=== PATIENT | male | born 1945 | race Caucasian/White ===

== ENCOUNTER 2016-11-17 08:54 | Outpatient (CLI) | payer MEDICARE ==
[~2016-11-17] VITALS: Ht 162.6 cm; Wt 68.0 kg
[~2016-11-17 08:54] MED LIST: ASP81TEC PO; ATOR40TA70 PO; CEFU500T5 PO; CETI10TA17 PO; COLC0.6T53 PO; DICL50TA6 PO; ENAL2.5T PO; ENAL5TAB PO; ENLP5T; ENLP5T GT; FLUT16SP22 NS; FURO20TA4; FURO40TA4; FURO40TA4 PO; FURO80TA3 PO; GLYB2.5T2 PO; GLYB2.5T4 PO; GLYB5TAB6 PO; HYDR-34 PO; HYDR-3720 PO; INSASP10V SC; INSASP10V SQ; INSU100C4 SQ; INSU100I10 SQ; INSU100V5 SQ; KCL20TCR; KCL20TCR PO; LEVO750T9 PO; METF1000 PO; METO-272 PO; METO25TA2; METO5TAB75 PO; MTF500T PO; NAPR375T3 PO; OMEP20CA12 PO; OMEP20CA6 PO; PANT40TA2 PO; PANT40TA3 PO; POTA-51 PO; POTA10CA43 PO; PRD10T PO; PROP1TAB77 PO; RT-ALBUINH IH; SIMV40TA4 PO; SMV20T PO; TAMS0.4C2 PO; TRAM50TA2 PO
--- OUTSIDE RECORDS SUMMARY | 2016-11-17 08:58 | XMS REPORT | Continuity of Care Document ---
Author Author [facility] Organization [facility] Address Unknown Phone Unavailable Care Team Providers Care Neon Sign Maker Name Role Phone PCP Unavailable Source Comments Some departments are not documenting in the electronic medical record. If you do not see the information that you expected, contact Release of Information in the Health Information Management department at [phone] for further assistance in locating additional records.[facility] Active Allergies and Adverse Reactions Not on File Current Medications Not on file Active Problems Not on file Social History Tobacco Use Types Packs/Day Years Used Date Never Assessed Plan of Care Health Maintenance Due Date Last Done Comments Physical (Comprehensive) 1952 Exam Pertussis Vaccine 1958 Tetanus Vaccine 1964 Colorectal Cancer 1997 Screening Shingles Vaccine 2007 Prevnar/Pneumovax (#1) 2012 Influenza Vaccine 06/05/2016 Results from Last 3 Months Not on file
[2016-11-17 09:02] VITALS: BP 127/70
[2016-11-17 10:11] LABS: CALCIUM 9.1 MG/DL (8.5-10.1); CREATININE SERUM 1.29 MG/DL (0.60-1.30); POTASSIUM 4.6 MMOL/L (3.6-5.0)
== END 2016-11-17 09:30 | disposition home or self-care (01) ==
LOC: PREOP 08:54
PROVIDERS: ATTEND Podiatrist Foot Surgery
DX: Z01.812 Encounter for preprocedural laboratory examination (principal); Z11.2 Encounter for screening for other bacterial diseases; M20.12 Hallux valgus (acquired), left foot; M20.42 Other hammer toe(s) (acquired), left foot
CPT/HCPCS: 36415; 80048; 87081

== ENCOUNTER 2016-11-21 06:05 | Day surgery (SDC) | payer MEDICARE ==
--- NOTE | 2016-11-17 13:06 | HISTORY AND PHYSICAL ---
CHIEF COMPLAINT: To have left foot surgery, han, this Thursday by Dr. Tenorio. ALLERGIC TO MEDICATIONS: INDOCIN MEDICATIONS NOW ON: 1. Lantus 14 units b.i.d. 2. NovoLog 7 units 3. aspirin 81 4. KCL 20 mEq one every other day 5. Flomax 0.4 6. Metformin 7. Zyrtec 8. furosemide 9. enalapril 10. 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 3. Pacemaker. 4. Tonsils. FAMILY HISTORY: Diabetic grandparents. Denies asthma, TB, heart disease, lung disease, cancer. REVIEW OF SYSTEMS: HEAD: Denies headache, dizziness, fainting. EYES, EARS, NOSE, THROAT: Wears glasses. Denies diplopia, tinnitus, sore throat. HEART: Had mitral valve repair. Denies chest pain or shortness of breath. LUNGS: Denies asthma, TB, coughing, congestion. GASTROINTESTINAL: Appetite good. Denies blood in stools, diarrhea, constipation, ulcer, vomiting. GENITOURINARY: Denies blood, pain, frequency. PHYSICAL EXAMINATION: The patient is a white male, well-nourished, well-developed, in no acute respiratory distress at rest. EARS: Not inflamed. EYES: No conjunctivitis or icterus. THROAT: Not inflamed. NECK: Thyroid not enlarged. No abnormal cervical lymphadenopathy noted. HEART: Regular rate and rhythm. LUNGS: Clear to auscultation. ABDOMEN: Soft. Liver and spleen nonpalpable. EXTREMITIES: No pretibial edema. Feet warm. The patient is okay for surgery. We will be on standby if has any problems. Job ID: [id number] Dictated Date: 11/17/2016 11:15:27 Commercial Airline Pilot Date: 11/17/2016 13:02:28/azael
[~2016-11-21] VITALS: Ht 162.6 cm; Wt 68.0 kg
--- OUTSIDE RECORDS SUMMARY | 2016-11-21 06:09 | XMS REPORT | Continuity of Care Document ---
Author Author [facility] Organization [facility] Address Unknown Phone Unavailable Care Team Providers Care Cane Piler Name Role Phone PCP Unavailable Source Comments Some departments are not documenting in the electronic medical record. If you do not see the information that you expected, contact Release of Information in the Health Information Management department at [phone] for further assistance in locating additional records.[facility] Active Allergies and Adverse Reactions Not [...]
--- OUTSIDE RECORDS SUMMARY | 2016-11-21 06:09 | XMS REPORT | Continuity of Care Document ---
Author Author [facility] Organization [facility] Address Unknown Phone Unavailable Care Team Providers Care Assembler Rubber Footwear Name Role Phone PCP Unavailable Source Comments Some departments are not documenting in the electronic medical record. If you do not see the information that you expected, contact Release of Information in the Health Information Management department at [phone] for further assistance in locating additional records.[facility] Active Allergies and Adverse Reactions Not [...]
[2016-11-21 06:40] VITALS: BP 121/68
[2016-11-21] MEDS ORDERED: NS (IVPB) 50 ML ONE (06:44)
[2016-11-21] MEDS ORDERED: ceFAZolin 1,000 MG (ANCEF) VIAL ONE (06:44)
[2016-11-21] MEDS ORDERED: FAMOTIDINE 20MG/2ML IV (PEPCID) ONE (06:48)
[2016-11-21] MEDS ORDERED: LACTATED RINGERS 1,000 ML IV PRN (06:51)
[2016-11-21] MEDS ORDERED: PROPOFOL INJECTION 50 ML IV ONE ×2 (06:55→08:39)
[2016-11-21] MEDS ORDERED: ONDANSETRON 4 MG/2 ML (SDV) Z0FRAN ONE (06:55)
[2016-11-21] MEDS ORDERED: MIDAZOLAM 2 MG/2 ML (VERSED) VIAL ONE (06:56)
[2016-11-21] MEDS ORDERED: FAMOTIDINE 20MG/2ML IV (PEPCID) IV ONE (07:00)
[2016-11-21] MEDS ORDERED: MEPIVACAINE (CARBOCAINE) 2% 50 ML VIAL ONE (07:08)
[2016-11-21] MEDS ORDERED: DEXAMETHASONE PF 10 MG/ML (DECADRON) VIAL ONE (07:09)
[2016-11-21] MEDS ORDERED: BUPIVACAINE 0.5% 30 ML (SENSORCAINE) VIAL ONE (07:09)
[2016-11-21] MEDS ORDERED: ceFAZolin 1 GM/NS 50 ML IVPB IV ONE ×2 (07:15)
[2016-11-21] MEDS ORDERED: LACTATED RINGERS 1,000 ML IV SCH (07:29)
--- NOTE | 2016-11-21 07:29 | Progress Note-Pre Operative ---
Pre-Operative Progress Note H&P Reviewed The H&P was reviewed, patient examined and no changes noted. Date H&P Reviewed: Nov 21, 2016 Time H&P Reviewed: 07:30 Pre-Operative Diagnosis: hallux valgus left foot hammer toe second left foot ELVA CONNOR DPM Nov 21, 2016 7:29 am
[2016-11-21] MEDS ORDERED: HYDROcodone/APAP 5 MG/325 MG (LORTAB) TAB PO PRN (07:30)
[2016-11-21] MEDS ORDERED: MEPERIDINE (DEMEROL) INJ 50 MG/ML IVP PRN (09:30)
[2016-11-21] MEDS ORDERED: morphine INJ 10 MG/ML 1ML (SYR OR VIAL) IVP PRN (09:30)
[2016-11-21] MEDS ORDERED: ONDANSETRON 4 MG/2 ML (SDV) Z0FRAN IVP PRN (09:30)
--- NOTE | 2016-11-21 09:30 | Progress Note-Post Operative ---
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 Post-Op Procedure Note Date of Procedure: Nov 21, 2016 Name of Procedure: IKELLER BUNOIONECTOMY LEFT FOOT CORRECTION OF HAMMERED SECOND DIGIT LEFT FOOT WITH INTERNAL FIXATION;. Procedure Note/Findings TOPHACEOUS DEPOSITS OF FIRST MPJ Anesthesia Type REGIONAL WITH ASSIST Specimen(s) collected BONE AND GOUTY DEPOSIT FROM [facility] MPJ LEFT FOOT ELVA CONNOR DPM Nov 21, 2016 9:29 am
--- NOTE | 2016-11-21 09:32 | Discharge Instructions ---
Discharge Instructions Discharge Medications New, Converted or Re-Newed RX: RX Given to Pt/Family Patient Instructions Patient Instructions 1. Follow up in office in 2 weeks. 2. Diet as tolerated. 3. Activity as tolerated. Activity & Diet Activity as Tolerated: Yes ELVA CONNOR DPM Nov 21, 2016 9:32 am
[2016-11-21] MEDS ORDERED: HYDR-3730 PO (09:37)
[2016-11-21 09:50] VITALS: BP 107/61
[2016-11-21 10:20] VITALS: BP 107/65
[2016-11-21 10:50] VITALS: BP 111/64
--- NOTE | 2016-11-21 10:53 | Diagnostic Imaging Report ---
INDICATION: Followup left foot pain. DISCUSSION: Two views left foot were obtained, comparison 12/04/2015. Interval postsurgical changes of left bunionectomy and percutaneous fixation of the left second toe. No hardware complications identified. No unexpected radiopaque foreign body. Overlying bandage is present. Posttraumatic deformity of the medial malleolus appears stable and is incompletely viewed, chronic. IMPRESSION: 1. Postoperative changes of the left foot as described. Dictated by: Dictated on workstation # [id number]
[2016-11-21 11:28] VITALS: BP 111/64
--- NOTE | 2016-11-22 11:57 | OPERATIVE REPORT ---
PROCEDURE PHYSICIAN: ELVA CONNOR DATE OF PROCEDURE: 11/21/2016 PREOPERATIVE DIAGNOSES: 1. Hallux valgus, left foot. 2. Contracted second digit, left foot. POSTOPERATIVE DIAGNOSES: 1. Hallux valgus, left foot. 2. Contracted second digit, left foot. NAME OF OPERATION: 1. Larry bunionectomy, left foot. 2. Capsulotomy, arthroplasty and tenotomy second digit left with K wire fixation. DESCRIPTION OF OPERATION: With the patient in the supine position, having been effected by regional anesthetic, utilizing 9 mL of 50:50 mixture of 0.5% Marcaine plain and 1% Carbocaine plain. With anesthesia assist, sterile prep and drape were performed and a August bandage was applied above the level of the left ankle. A 7 cm curvilinear incision was made over the dorsal aspect of the first metatarsal medial to the HL tendon and extended onto the first digit. This incision was deepened with sharp and blunt dissection. Vital structures identified and retracted. First MPJ was incised in a linear fashion. The capsule and periosteum were freed from the dorsal medial and lateral aspect of the proximal phalangeal base, first metatarsal head. Medial exostosis of the first metatarsal head was resected in toto. There was considerable tophaceous deposits noted within the joint due to gout and significant erosion of the articular surfaces. The base of the proximal phalanx was resected 1 cm distal to the articular surface. The area was flushed with copious amounts of saline. Extraneous tophaceous deposits were removed. Capsule was closed with continuous lock suture of 3-0 Vicryl. Superficial fascia closed with continuous suture of 4-0 Vicryl and the skin was closed with continuous lock suture of 4-0 Prolene. A 3 cm curvilinear incision was made over the dorsal aspect of the second digit, deepened with sharp and blunt dissection. The PIPJ was incised in a linear fashion medial to the extensor longus tendon. The joint was incised and the medial and lateral collateral ligaments were severed. The head of the proximal phalanx and the base of the distal phalanx were noted to be completely involved with tophaceous gouty deposits and significantly enlarged. These were remodeled to normal bony contour and what was left of the articular surface was resected from the phalangeal head and middle phalangeal base. A smooth 0.045 K wire was introduced through the end of the digit and retrograded into the proximal phalanx to afford adequate fixation and reapproximate the digit. The area was flushed with copious amounts of saline. Capsule was closed with continuous suture of 4-0 Vicryl. Superficial fascia and skin were closed with continuous suture of 4-0 Prolene. Decadron was introduced into the operative site to control postoperative pain and swelling and to help minimize any gouty attack. Adaptic and sterile corrective compressive wet-to-dry Betadine dressing were applied and carried above the level of the left ankle and covered with circular Coban. The patient tolerated the procedure well with minimal blood loss. Blood flow returned digits was within normal limits. The patient was given an Rx for Lortab 7.5 number 28, 1 q.4-6 hours p.r.n. foot pain. He is to be seen in the office in 2 weeks for appropriate follow-up care. Job ID: [id number] Dictated Date: 11/21/2016 09:38:18 Computer Bookkeeper Date: 11/22/2016 11:47:24 / [email or web address]
== END 2016-11-21 11:28 | disposition home or self-care (01) ==
LOC: SDC 06:05
PROVIDERS: ATTEND Podiatrist Foot Surgery
DX: M20.12 Hallux valgus (acquired), left foot (principal); M20.42 Other hammer toe(s) (acquired), left foot; E11.9 Type 2 diabetes mellitus without complications; Z79.4 Long term (current) use of insulin; Z79.84 Long term (current) use of oral hypoglycemic drugs
CPT/HCPCS: 73620; 82962; 88305; 88311

== ENCOUNTER → 2017-07-07 | Outpatient (CLI) | payer MEDICARE ==
[~2017-07-07] MED LIST changes: +HYDR-3730 PO
== END ==
LOC: RAD 12:36
PROVIDERS: ATTEND Internal Medicine Cardiovascular Disease
DX: I73.9 Peripheral vascular disease, unspecified (principal); I25.5 Ischemic cardiomyopathy; I25.10 Atherosclerotic heart disease of native coronary artery without angina pectoris; I42.0 Dilated cardiomyopathy; E11.40 Type 2 diabetes mellitus with diabetic neuropathy, unspecified
CPT/HCPCS: 93923

== ENCOUNTER → 2018-07-07 | Outpatient (CLI) | payer MEDICARE ==
[~2018-07-07] MED LIST changes: +METF-399 PO; -METF1000 PO; +NAPR-1084 PO; -NAPR375T3 PO
== END ==
LOC: CARD 12:28
PROVIDERS: ATTEND Nurse Practitioner Family
DX: I34.8 Other nonrheumatic mitral valve disorders (principal)
CPT/HCPCS: 93306

== ENCOUNTER 2020-07-30 05:37 | Outpatient (RCR) | payer MEDICARE ==
[~2020-07-30] VITALS: Ht 162.6 cm; Wt 62.8 kg
[~2020-07-30 05:37] MED LIST changes: +ASPI-1238 PO; +EMPA25TA PO; +ENLP2.5T PO; +ENLP5T PO; +OMEP40CA27 PO; -PANT40TA3 PO; +PANT40TA52 PO; +PROB500T8 PO; +ROSU5TAB13 PO; +SEMA0.25 SQ; +TMSL.4C PO; -TRAM50TA2 PO; +TRM50T PO
== END 2020-07-30 09:55 | disposition home or self-care (01) ==
LOC: PREOP 05:37
PROVIDERS: ATTEND Surgery
DX: Z01.812 Encounter for preprocedural laboratory examination (principal); Z20.828 Contact with and (suspected) exposure to other viral communicable diseases
CPT/HCPCS: 87635

== ENCOUNTER 2020-08-02 10:39 | Day surgery (SDC) | payer MEDICARE ==
[2020-08-02] VITALS (11 sets, daily range): BP systolic 106–127; BP diastolic 40–78
[~2020-08-02] VITALS: Ht 162 cm; Wt 138.0 kg
[2020-08-02] MEDS ORDERED: ONDANSETRON 4 MG/2 ML (SDV) Z0FRAN IVP PRN ×2 (11:15→15:30)
[2020-08-02] MEDS ORDERED: ACETAMINOPHEN 325 MG TABLET PO PRN (11:15)
[2020-08-02] MEDS ORDERED: CATHETER FLUSH 10 ML SYR IV PRN (11:15)
[2020-08-02] MEDS ORDERED: HYDROcodone/APAP 5 MG/325 MG (LORTAB) TAB PO ONE (11:15)
[2020-08-02] MEDS ORDERED: morphine INJ 10 MG/ML 1ML (SYR OR VIAL) IVP PRN (11:15)
[2020-08-02] MEDS ORDERED: ceFAZolin INJECTION 1,000 MG in WATER (STERILE) FOR INJECTION 10 ML IV ONE (11:15)
--- NOTE | 2020-08-02 11:15 | Progress Note-Pre Operative ---
Pre-Operative Progress Note H&P Reviewed The H&P was reviewed, patient examined and no changes noted. Date Seen by Provider: Aug 02, 2020 Time Seen by Provider: 11:10 Date H&P Reviewed: Aug 02, 2020 Time H&P Reviewed: 11:05 Pre-Operative Diagnosis: Symptomatic right inguinal hernia CHAITANYA YUN APRN Aug 02, 2020 11:15
[2020-08-02] MEDS ORDERED: HYDR-4227 PO (11:18)
--- NOTE | 2020-08-02 11:18 | Discharge Inst-Surgical ---
D/C Lap Instructions-KIDO Reconcile Patient Problems Problems Reviewed?: Yes New, Converted, or Re-Newed RX: RX on Chart Follow Up Appt in 2 weeks Activity as tolerated No driving for 24 hours No driving while on pain medications Incentive Spirometry use every 2 hours while awake Regular Diet Symptoms to Report: Fever over 101 degree F, Nausea/Vomiting Infection Signs and Symptoms to report: Increased redness, Foul odor of wound, Increased drainage Bathing instructions: May shower Operative Area Clean/Dry; Keep incision clean/dry If any problems/questions: Contact your physician or go to Emergency Room CHAITANYA YUN APRN Aug 02, 2020 11:18
[2020-08-02] MEDS: LACTATED RINGERS 1,000 ML IV PRN ×2 (11:25→14:52)
[2020-08-02 11:34] LABS: BASOPHILS # (AUTO) 0.1 10^3/uL (0.0-0.1); BASOPHILS % (AUTO) 1 % (0-10); EOSINOPHILS # (AUTO) 0.5 10^3/uL (0.0-0.3); EOSINOPHILS % (AUTO) 7 % (0-10); HEMATOCRIT 49 % (40-54); HEMOGLOBIN 16.2 g/dL (13.3-17.7); LYMPHOCYTES # (AUTO) 2.1 10^3/uL (1.0-4.0); LYMPHOCYTES % (AUTO) 28 % (12-44); MEAN CORPUSCULAR HEMOGLOBIN 29 pg (25-34); MEAN CORPUSCULAR HGB CONC 33 g/dL (32-36); MEAN CORPUSCULAR VOLUME 87 fL (80-99); MEAN PLATELET VOLUME 10.4 fL (9.0-12.2); MONOCYTES # (AUTO) 0.6 10^3/uL (0.0-1.0); MONOCYTES % (AUTO) 8 % (0-12); NEUTROPHILS # (AUTO) 4.2 10^3/uL (1.8-7.8); NEUTROPHILS % (AUTO) 56 % (42-75); PLATELET COUNT 212 10^3/uL (130-400); WHITE BLOOD COUNT 7.4 10^3/uL (4.3-11.0)
[2020-08-02 11:53] LABS: CALCIUM 8.9 MG/DL (8.5-10.1); CREATININE SERUM 1.41 MG/DL (0.60-1.30); POTASSIUM 4.6 MMOL/L (3.6-5.0)
[2020-08-02] MEDS ORDERED: LIDOCAINE/EPI 1%-1:200,000 (XYLOCAINE) 30 ML VIAL ONE (12:45)
[2020-08-02] MEDS ORDERED: proPOfol 200 MG/20 ML (DIPRIVAN) VIAL IV ONE (13:18)
[2020-08-02] MEDS ORDERED: LIDOCAINE PF 2% 5 ML (XYLOCAINE) VIAL ONE (13:18)
[2020-08-02] MEDS ORDERED: ONDANSETRON 4 MG/2 ML (SDV) Z0FRAN ONE (13:18)
[2020-08-02] MEDS ORDERED: MIDAZOLAM 2 MG/2 ML (VERSED) VIAL ONE (13:19)
[2020-08-02] MEDS ORDERED: fentaNYL INJECTION 100 MCG/2 ML AMP ONE (13:19)
[2020-08-02] MEDS ORDERED: PHENYLEPHRINE 100 MCG/ML 10 ML (ANESTHESIA) SYR ONE (14:38)
[2020-08-02] MEDS ORDERED: ROCURONIUM 10 MG/ML 5 ML SYRINGE IV ONE (14:38)
--- NOTE | 2020-08-02 14:42 | Progress Note-Post Operative ---
Post-Operative Progess Note Surgeon (s)/Natural Developer (s) Surgeon BEA MINAYA MD Natural Developer: zaki sheffield AUTOMOTIVE PROFESSIONAL Pre-Operative Diagnosis Symptomatic right inguinal hernia Post-Operative Diagnosis reducible right indirect inguinal hernia. uretheral stricture. Procedure & Operative Findings Date of Procedure 08/02/20 Procedure Performed/Findings laparoscopic right inguinal hernia repair with mesh. uretheral dilation with coudet cath placment. Anesthesia Type get Estimated Blood Loss Estimated blood loss (mL): minimal Specimens/Packing Specimens Removed none BEA MINAYA MD Aug 02, 2020 14:42
[2020-08-02] MEDS ORDERED: SEVOFLURANE (ULTANE) 15 ML INHAL SOLN ONE (15:06)
[2020-08-02] MEDS ORDERED: morphine INJ 10 MG/ML 1ML (SYR OR VIAL) ONE (15:26)
[2020-08-02] MEDS ORDERED: morphine INJ 10 MG/ML 1ML (SYR OR VIAL) IVP ONE (15:30)
[2020-08-02] MEDS ORDERED: HYDROcodone/APAP 5 MG/325 MG (LORTAB) TAB ONE (16:36)
--- NOTE | 2020-08-02 22:30 | OPERATIVE REPORT ---
DATE OF SERVICE: 08/02/2020 ATTENDING PRIMARY CARE PHYSICIAN: Jax Fox DO. PREOPERATIVE DIAGNOSIS: Symptomatic reducible right inguinal hernia. POSTOPERATIVE DIAGNOSIS: Symptomatic reducible right indirect inguinal hernia, prostatic urethral stricture. PROCEDURE: Laparoscopic right inguinal hernia repair with mesh, urethral dilatation and Coude catheter placement. SURGEON: Bea Muniz MD [place] [facility] CONSULTANT: Bulmaro Jara APRN. ANESTHESIA: General endotracheal. ESTIMATED BLOOD LOSS: Minimal. FINDINGS: Indirect right inguinal hernia with nothing within the hernia sac, prostatic urethral stricture dilated to 18-Botswanan. DISPOSITION: The patient tolerated the procedure well. INDICATIONS: The patient is a 75-year-old male, who has had a known history of a right inguinal hernia, which was initially asymptomatic. He states that he was hiking recently and developed a sharp pain and noticed the bulge had grew larger in size. Upon examination, he was found to have a reducible right inguinal hernia, which was tender to palpation. He is otherwise eating well, having normal bowel movements. Before the procedure, an attempt was made to place a Andino catheter; however, due to his history of benign prostatic hypertrophy and likely prostatic urethral stricture, the catheter would not go through. Attempts were made at a 16-Botswanan Coude catheter; however, unsuccessful. We then proceeded with prostatic urethral dilatation using sounds starting at 16 and increasing to 18-Botswanan in luminal diameter. An 18-Botswanan Coude catheter was then placed without any resistance withdrawing of urine. The catheter was then connected to gravity drainage bag. The abdomen was then prepped and draped in standard surgical fashion. A 0.5% Marcaine with epinephrine was then used to anesthetize overlying skin left upper abdominal quadrant. A transverse skin incision was then made using a 15 blade. An 0 silk suture was applied to the medial aspect and incision for retraction and Veress infraumbilical rim was anesthetized and a crescent shaped skin incision made using a 15 blade. A Veress needle inserted with a low opening pressure of 0 mmHg and the abdomen was then insufflated to 15 mmHg pressure. Veress needle removed and a 10 mm XL trocar placed followed by a 10 mm 45-degree angle laparoscope visualizing the peritoneal cavity. A 4-quadrant abdominal exploration was performed. A right indirect inguinal hernia was identified with nothing within the hernia sac. There was no left inguinal hernia component was inserted the omentum, small bowel appeared normal. Under direct visualization, bilateral 5 mm ports were placed after the skin and peritoneal lining were anesthetized using 0.5% Marcaine with epinephrine and a skin incision was made using a 15 blade. The patient was then placed in Trendelenburg position and the peritoneal lining was then opened using Sonicision starting laterally towards the conjoined tendon and inguinal ligament. We then proceeded medially towards the Conrad's ligament. We then proceeded with our inferior dissection encompassing the entire hernia sac using blunt dissection as well as the Sonicision. The cord and its surrounding contents identified and spared throughout the process. A medium size 3DMax polypropylene mesh was then placed into the defect and tacked to Conrad's ligament with an AbsorbaTack medially and conjoint tendon laterally with visualization of good hemostasis. The peritoneal lining was then placed over the mesh and few tacks placed to hold this in place with visualization of good hemostasis. The 10 mm port site fascia and peritoneum were then closed under direct visualization using a Fly-Ariana device and 0 Vicryl suture. The abdomen was desufflated and remaining ports removed. All skin incisions were closed using 4-0 Monocryl running subcuticular sutures. Wounds were then cleaned and covered with Dermabond. The abdomen was desufflated and remaining ports removed. All skin incisions were closed using 4-0 Monocryl running subcuticular sutures. Wounds were then cleaned and covered with Dermabond. The patient tolerated the procedure well. We will start IV normal pain medication as well as a clear liquid diet. Once he is tolerating clears, has good pain control with oral pain medications, ambulating well, we will discharge him home. We will also keep the catheter in for 24 hours and remove it in the office and instructed to continue with his prostatic hypertrophy medication at home. Job ID: [id number] DocumentID: [id number] Dictated Date: 08/02/2020 14:50:21 Certified Pest Control Technician Date: 08/02/2020 22:30:35 Dictated By: BEA MUNIZ MD
== END 2020-08-02 17:30 ==
LOC: SDC 10:39
PROVIDERS: ATTEND Surgery
DX: K40.90 Unilateral inguinal hernia, without obstruction or gangrene, not specified as recurrent (principal); N35.819 Other urethral stricture, male, unspecified site; N40.0 Benign prostatic hyperplasia without lower urinary tract symptoms; I10 Essential (primary) hypertension; I25.10 Atherosclerotic heart disease of native coronary artery without angina pectoris; E11.40 Type 2 diabetes mellitus with diabetic neuropathy, unspecified; K21.9 Gastro-esophageal reflux disease without esophagitis; M10.9 Gout, unspecified; E78.00 Pure hypercholesterolemia, unspecified; I25.2 Old myocardial infarction; Z79.82 Long term (current) use of aspirin; Z79.899 Other long term (current) drug therapy; Z88.8 Allergy status to other drugs, medicaments and biological substances; Z88.5 Allergy status to narcotic agent; Z95.1 Presence of aortocoronary bypass graft
CPT/HCPCS: 49650; 53605; 80048; 82962; 85025; 87081; C1781; 36415

== ENCOUNTER → 2020-09-04 | Outpatient (CLI) | payer MEDICARE ==
[~2020-09-04] MED LIST changes: +HYDR-4227 PO
--- NOTE | 2020-09-04 12:19 | Diagnostic Imaging Report ---
CLINICAL INDICATION: Patient with rib pain x1 week on the right lower side. No known injury. EXAM: Chest x-ray PA and lateral views. COMPARISONS: Chest x-ray dated 08/26/2016. FINDINGS: Lungs/pleura: There is interval development of minimal curvilinear opacities in the right costophrenic angle region which may represent atelectasis versus infiltrate. The remainder of the lungs are clear. There is no pneumothorax. There is no pleural effusion. Mediastinum: Unremarkable. Pulmonary vasculature: Unremarkable. Heart: Heart size is within normal limits. Cardiac pacemaker/ICD is again seen overlying left chest with single lead projecting over the heart. Stable postoperative changes consistent with CABG. Bones/extrathoracic soft tissue: There are small spurs involving the thoracic spine. There is no rib fracture seen or significant bony abnormality. IMPRESSION: There is interval minimal atelectasis versus infiltrate in the right costophrenic angle region. Otherwise, there is no radiographic evidence of acute cardiopulmonary process. Dictated by: Dictated on workstation # [id number]
== END ==
LOC: RAD 11:03
PROVIDERS: ATTEND Family Medicine
DX: R06.02 Shortness of breath (principal); R07.81 Pleurodynia
CPT/HCPCS: 71046

== ENCOUNTER → 2020-09-11 | Outpatient (CLI) | payer MEDICARE ==
--- NOTE | 2020-09-11 13:47 | Diagnostic Imaging Report ---
PROCEDURE: CT abdomen and pelvis without contrast. TECHNIQUE: Multiple contiguous axial images were obtained through the abdomen and pelvis without the use of intravenous contrast. Auto Exposure Controls were utilized during the CT exam to meet ALARA standards for radiation dose reduction. INDICATION: Weight loss. COMPARISON: No prior studies are available for comparison. FINDINGS: Imaging through the lung bases does show some infiltrate in bilateral lower lobes. No discrete liver mass is identified. The gallbladder is unremarkable. No biliary ductal dilatation is seen. The pancreas does contain punctate calcifications throughout the head, neck, body and tail. 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 Spleen is unremarkable. No adrenal mass is detected. The left kidney does contain a 19 mm cyst. Aorta is calcified but non-aneurysmal. The bowel loops are normal caliber. No obstruction is seen. There is no free fluid or fluid collection. Bladder is unremarkable. The prostate is markedly enlarged measuring 5.7 x 7.1 cm. No definite abdominal or pelvic lymphadenopathy is seen. The bony structures are not acute. IMPRESSION: 1. Bilateral lower lobe pulmonary infiltrates suggestive of pneumonia. 2. Marked prostatomegaly. 3. No acute features detected. Dictated by: Dictated on workstation # [id number]
== END ==
LOC: RAD 13:18
PROVIDERS: ATTEND Family Medicine
DX: N40.0 Benign prostatic hyperplasia without lower urinary tract symptoms (principal); R91.8 Other nonspecific abnormal finding of lung field; R63.4 Abnormal weight loss
CPT/HCPCS: 74176

== ENCOUNTER → 2020-09-13 | Outpatient (CLI) | payer MEDICARE ==
--- NOTE | 2020-09-13 11:11 | Diagnostic Imaging Report ---
EXAM: PA and lateral chest at 10:25 AM INDICATION: Shortness of breath The heart size is within normal limits and stable when compared to 09/04/2020. The previous study did show minimal atelectasis/infiltrate in the right costophrenic angle. The density in this area is slightly greater than on the prior exam. The lungs are otherwise generally clear and well aerated. The mediastinum is not widened. The osseous structures are intact. The sternotomy wires and surgical clips and a left-sided defibrillator device seen previously are again evident and no different. IMPRESSION: There has been a slight increase in the atelectasis/infiltrate involving the right costophrenic angle. The overall appearance of the chest is otherwise stable. Dictated by: Dictated on workstation # [id number]
== END ==
LOC: RAD 10:07
PROVIDERS: ATTEND Family Medicine
DX: J18.9 Pneumonia, unspecified organism (principal); J98.11 Atelectasis
CPT/HCPCS: 71046

== ENCOUNTER → 2020-10-01 | Outpatient (CLI) | payer MEDICARE ==
[~2020-10-01] MED LIST changes: +OMEP20TA7 PO
--- NOTE | 2020-10-01 09:05 | Diagnostic Imaging Report ---
Indication: Pneumonia PA and lateral views of the chest obtained. Comparison is made study of 09/13/2020. FINDINGS: Heart size and pulmonary vascularity are within normal limits, and the lungs are clear, bilaterally. Left chest wall defibrillator device remains in stable position. IMPRESSION: Unremarkable chest. Dictated by: Dictated on workstation # [id number]
== END ==
LOC: RAD 08:41
PROVIDERS: ATTEND Family Medicine
DX: J18.9 Pneumonia, unspecified organism (principal)
CPT/HCPCS: 71046

== ENCOUNTER 2020-10-08 05:36 | Outpatient (RCR) | payer MEDICARE ==
[~2020-10-08] VITALS: Ht 162 cm; Wt 59.5 kg
== END 2020-10-08 10:30 | disposition home or self-care (01) ==
LOC: PREOP 05:36
PROVIDERS: ATTEND Surgery
DX: Z01.818 Encounter for other preprocedural examination (principal); R19.5 Other fecal abnormalities; Z20.828 Contact with and (suspected) exposure to other viral communicable diseases
CPT/HCPCS: 87635

== ENCOUNTER 2020-10-10 11:37 | Day surgery (SDC) | payer MEDICARE ==
[2020-10-10] VITALS (7 sets, daily range): BP systolic 89–122; BP diastolic 53–78
[~2020-10-10] VITALS: Ht 162 cm; Wt 59.0 kg
[2020-10-10] MEDS ORDERED: LACTATED RINGERS 1,000 ML IV ONE (11:43)
[2020-10-10] MEDS ORDERED: LACTATED RINGERS 1,000 ML IV STA (11:46)
[2020-10-10] MEDS ORDERED: LIDOCAINE JELLY 2% 6 ML SYRINGE MM PRN (12:00)
[2020-10-10] MEDS ORDERED: HURRICAINE EXT TUBE (BENZOCAINE) XX PRN (12:00)
[2020-10-10] MEDS ORDERED: MIDAZOLAM 2 MG/2 ML (VERSED) VIAL ONE (12:22)
[2020-10-10] MEDS ORDERED: PROPOFOL INJECTION 50 ML IV ONE (12:22)
--- NOTE | 2020-10-10 12:46 | Progress Note-Pre Operative ---
Pre-Operative Progress Note H&P Reviewed The H&P was reviewed, patient examined and no changes noted. Date Seen by Provider: Oct 10, 2020 Time Seen by Provider: 12:00 Date H&P Reviewed: Oct 10, 2020 Time H&P Reviewed: 12:00 Pre-Operative Diagnosis: weight loss, heme +stool BEA MINAYA MD Oct 10, 2020 12:46
--- NOTE | 2020-10-10 12:47 | Discharge Inst-Surgical ---
D/C Lap Instructions-REI Follow Up Activity as tolerated High Fiber Diet 25g or more per day Avoid Alcohol, Caffeine, Spicy Latta and Acid foods. Drink 64 fluid oz or more of fluids per day. Symptoms to Report: Fever over 101 degree F, Nausea/Vomiting If any problems/questions: Contact your physician or go to Emergency Room BEA MINAYA MD Oct 10, 2020 12:47
[2020-10-10] MEDS ORDERED: HYDROcodone/APAP 5 MG/325 MG (LORTAB) TAB PO PRN (13:00)
[2020-10-10] MEDS ORDERED: ONDANSETRON 4 MG/2 ML (SDV) Z0FRAN IVP PRN (13:00)
[2020-10-10] MEDS ORDERED: morphine INJ 10 MG/ML 1ML (SYR OR VIAL) IVP PRN ×2 (13:00)
[2020-10-10] MEDS ORDERED: ACETAMINOPHEN 325 MG TABLET PO PRN (13:00)
[2020-10-10] MEDS ORDERED: LIDOCAINE JELLY 2% 6 ML SYRINGE ONE (13:31)
--- NOTE | 2020-10-10 14:06 | Progress Note-Post Operative ---
Post-Operative Progess Note Surgeon (s)/Oil Sprayer (s) Surgeon BEA MINAYA MD Oil Sprayer: none Pre-Operative Diagnosis weight loss, heme +stool Post-Operative Diagnosis reflux esophagitis(stage 2), small-moderate HH(2.5cm), mild-moderate gastritis. chronic stage 2 ext and int hemorrhoids, enlarged prostate, HP rectum(2mm). Procedure & Operative Findings Date of Procedure 10/10/20 Procedure Performed/Findings EGD with bx. Colonoscopy with bx. Anesthesia Type mac Estimated Blood Loss Estimated blood loss (mL): minimal Specimens/Packing Specimens Removed ge jxn, antrum, rectal polyp BEA MIANYA MD Oct 10, 2020 14:06
--- NOTE | 2020-10-10 15:46 | OPERATIVE REPORT ---
DATE OF SERVICE: 10/10/2020 ATTENDING PRIMARY CARE PHYSICIAN: Jax Fox DO. PREOPERATIVE DIAGNOSIS: Positive Cologuard test, weight loss. POSTOPERATIVE DIAGNOSES: Reflux esophagitis stage II, small to moderate size hiatal hernia approximately 2.5 cm in size. Mild to moderate gastritis, normal duodenum, chronic stage II external and internal hemorrhoids and small hyperplastic polyp of the rectum. PROCEDURES PERFORMED: EGD with biopsy and colonoscopy with biopsy. SURGEON: Bea Minaya MD. ANESTHESIA: Monitored anesthesia care. ESTIMATED BLOOD LOSS: Minimal. FINDINGS: Same as postoperative diagnoses. DISPOSITION: The patient tolerated the procedure well. INDICATIONS FOR PROCEDURE: The patient is a 75-year-old male known to us. We had seen him for a symptomatic right inguinal hernia and repaired this laparoscopically on 08/02/2020. Preoperatively, he was found to have a urethral stricture requiring urethral dilatation. He was recently found to have a positive Cologuard test. He also has lost 20 to 25 pounds in the past four months; however, this is likely due to a significant amount of stress from the loss of his . DESCRIPTION OF PROCEDURE: The patient was brought to the endoscopy suite and laid in the left lateral decubitus position. After adequate IV pain and sedative medications and monitored anesthesia care, the mouthpiece was applied. The endoscope was placed in the mouth, visualizing the pharynx and hypopharyngeal region. Vocal cords, epiglottis and vallecula identified and appeared to be normal. The endoscope was then gently intubated, the esophageal opening and esophagus insufflated. The endoscope was then advanced through the first, second and third portions of esophagus. At the level of the GE junction, a reflux esophagitis stage II identified. There were no ulcers or strictures identified in this region. A biopsy was taken of the GE junction with forceps with visualization of good hemostasis. The endoscope was then advanced in the stomach and endoscope retroflexed visualizing a small to moderate size hiatal hernia approximately 2.5 cm in size. There was a mild to moderate gastritis. No formal ulcerations, polyps or any neoplasms. A biopsy was taken of the antrum to rule out H. pylori with visualization of good hemostasis. The endoscope was then advanced to the pylorus and the first and second portion of the duodenum, which appeared normal with no ulcerations or any neoplasms. The endoscope was then slowly withdrawn while taking a second look and suctioning of residual air with no additional findings. We then proceeded with the colonoscopy portion of the procedure. A digital rectal examination was performed, which revealed chronic stage II external and internal hemorrhoids, not actively edematous nor inflamed and no bleeding. Normal sphincter tone was felt and there were no palpable masses. The prostate was enlarged consistent with a benign prostatic hypertrophy. The endoscope was then intubated into the anus and rectum gently insufflated. The endoscope was then advanced to the valves of [place] of the rectum with a small hyperplastic polyp approximately 2 mm in size identified. This was biopsied with forceps with visualization of good hemostasis. The endoscope was then advanced to the remainder of the rectum and through the sigmoid colon, where no diverticula identified. We then proceeded through the remainder of the descending, transverse and ascending colon to the cecum, which were normal. No polyps or any neoplasms identified. The endoscope was then slowly withdrawn while taking a second look and suctioning of residual air with no additional findings. The patient tolerated the procedure well. We will recommend the necessary lifestyle and diet accommodation including small and more frequent meals, avoidance of eating at night as well as head elevation while lying supine. We will also recommend proceeding with a high protein diet as much as possible. If he does develop issues with nausea or vomiting, this may be related to gallbladder etiology and in this scenario, we would proceed with an ultrasound as well as possible HIDA scan of the gallbladder. We will also recommend a high fiber diet with at least 30 grams of fiber daily to promote soft stools on a daily basis. He does not need another colonoscopy for another 10 years if he is asymptomatic. Job ID: [id number] DocumentID: [id number] Dictated Date: 10/10/2020 14:02:29 Maintenance Mechanic Technician Date: 10/10/2020 15:45:55 Dictated By: BEA MINAYA MD
--- NOTE | 2020-10-12 11:04 | Anesthesia-General Post-Op ---
MAC Patient Condition Mental Status/LOC: Same as Preop Cardiovascular: Satisfactory Nausea/Vomiting: Absent Respiratory: Satisfactory Pain: Controlled Complications: Absent Post Op Complications Complications None Follow Up Care/Instructions Patient Instructions None needed. Anesthesiology Discharge Order Discharge Order Patient was seen after the procedure on 10-10-20 at approximately 1415 and he was doing well, no complaints, stable vital signs, no apparent adverse anesthesia problems. JERRY GARCIA DO Oct 12, 2020 11:04
== END 2020-10-10 15:05 | disposition home or self-care (01) ==
LOC: ENDO 11:37
PROVIDERS: ATTEND Surgery
DX: K21.00 Gastro-esophageal reflux disease with esophagitis, without bleeding (principal); K63.5 Polyp of colon; K44.9 Diaphragmatic hernia without obstruction or gangrene; K29.70 Gastritis, unspecified, without bleeding; K64.1 Second degree hemorrhoids; I10 Essential (primary) hypertension; I25.10 Atherosclerotic heart disease of native coronary artery without angina pectoris; G47.33 Obstructive sleep apnea (adult) (pediatric); K21.9 Gastro-esophageal reflux disease without esophagitis; E11.40 Type 2 diabetes mellitus with diabetic neuropathy, unspecified; M19.90 Unspecified osteoarthritis, unspecified site; E78.00 Pure hypercholesterolemia, unspecified; N40.0 Benign prostatic hyperplasia without lower urinary tract symptoms; M10.9 Gout, unspecified; Z79.4 Long term (current) use of insulin; Z79.899 Other long term (current) drug therapy; Z88.8 Allergy status to other drugs, medicaments and biological substances; Z88.5 Allergy status to narcotic agent; Z83.3 Family history of diabetes mellitus
CPT/HCPCS: 88305

== ENCOUNTER 2021-02-22 08:49 | Emergency (ER) | payer MEDICARE ==
[~2021-02-22] VITALS: Ht 162 cm; Wt 61.0 kg
[~2021-02-22 08:49] MED LIST changes: -APIX5TAB PO
--- NOTE | 2021-02-22 10:22 | ED Lower Extremity ---
General Chief Complaint: Lower Extremity Stated Complaint: L LEG EDEMA Nursing Triage Note: ARRIVED VIA AMB WITH COMPLAINTS OF LEFT LEG SWELLING AND PAIN X2 DAYS. Nursing Sepsis Screen: No Definite Risk Source: patient Exam Limitations: no limitations History of Present Illness Date Seen by Provider: February 22, 2021 Time Seen by Provider: 10:09 Initial Comments Here with complaint of acute onset of left leg swelling for the last 3 to 4 days. He had returned from a trip to [place] when he noted the leg swelling. Does have history of gout and thought maybe that is what it was but gout typically affects his great toe or ankle on either side and/or elbows or wrist. He has never had full leg swelling before. Does complain of redness and swelling of the leg. Denies fever chills. Denies breathing problems. Does suffer a little bit from occasional allergies but otherwise no changes there. Onset: other (3 to 4 days) Severity: moderate Pain/Injury Location: left leg Method of Injury: unknown Modifying Factors: Improves With Rest Allergies and Home Medications Allergies Coded Allergies: allopurinol (Verified Allergy, Severe, HALLUCINATIONS, 10/04/20) indomethacin (Verified Allergy, Severe, HALLUCINATIONS, 10/04/20) Home Medications Aspirin 81 Mg Tablet.dr, 81 MG PO DAILY, (Reported) Cetirizine HCl 10 Mg Tablet, 10 MG PO HS, (Reported) Empagliflozin 25 Mg Tablet, 25 MG PO DAILY, (Reported) Enalapril Maleate 5 Mg Tablet, 5 MG PO HS, (Reported) Furosemide 40 Mg Tablet, 40 MG PO DAILY, (Reported) Insulin Glargine,Hum.rec.anlog 100 Unit/1 Ml Insuln.pen, 18 UNIT SQ BID, (Reported) Omeprazole 20 Mg Tablet.dr, 20 MG PO DAILY, (Reported) Probenecid 500 Mg Tablet, 500 MG PO DAILY, (Reported) Rosuvastatin Calcium 5 Mg Tablet, 5 MG PO DAILY, (Reported) Semaglutide 0.25 Mg/0.2 Ml Pen.injctr, 0.05 MG SQ WEEK, (Reported) Tamsulosin HCl 0.4 Mg Cap, 0.4 MG PO DAILY, (Reported) Patient Home Medication List Home Medication List Reviewed: Yes Review of Systems Constitutional: see HPI; No chills, No fever EENTM: no symptoms reported, nose congestion; No throat pain Respiratory: No cough, No short of breath Cardiovascular: No chest pain; edema Gastrointestinal: No nausea, No vomiting Musculoskeletal: gout, joint pain Skin: change in color; No lesions Psychiatric/Neurological: Denies Numbness, Denies Weakness Past Jwjeusc-Axowtm-Ibipto Hx Past Med/Social Hx: Reviewed Nursing Past Med/Soc Hx Patient Social History Alcohol Use: Denies Use Smoking Status: Never a Smoker Type Used: Cigarettes Former Smoker, Quit: Oct 05, 1998 2nd Hand Smoke Exposure: Yes Recent Infectious Disease Expo: No Recent Hopitalizations: No Immunizations Up To Date Date of Pneumonia Vaccine: Jul 31, 2016 Date of Influenza Vaccine: Jul 09, 2020 Seasonal Allergies Seasonal Allergies: Yes Past Medical History Surgeries: Yes (CABG W/VALVE REPAIRED, BILAT TKR, KNEE SCOPE, TKR REPAIR,hernia, foot,TURP) CABG, Joint Replacement, Pacemaker Respiratory: Yes Sleep Apnea Currently Using CPAP: No Currently Using BIPAP: No Cardiac: Yes (MITRAL VALVE REPAIR/ SINGLE BYPASS, [employer] pacemaker) Cardiomyopathy, Coronary Artery Disease, High Cholesterol, Hypertension Neurological: Yes Neuropathy Reproductive Disorders: No Sexually Transmitted Disease: No Genitourinary: No Gastrointestinal: Yes (R ing hernia) Gastroesophageal Reflux Musculoskeletal: Yes (DJD) Arthritis, Gout Endocrine: Yes Diabetes, Insulin dep HEENT: Yes (GLASSES, DENTURES) Loss of Vision: Denies Hearing Impairment: Hard of Hearing Cancer: Yes Skin What Type of Treatment Did You: Surgical Intervention Psychosocial: No Integumentary: No Blood Disorders: No Adverse Reaction/Blood Tranf: No (N/A) Family Medical History Reviewed Nursing Family Hx Physical Exam Vital Signs Vital Signs - First Documented 02/22/21 09:25 Temp 36.5 Pulse 79 Resp 16 B/P (MAP) 113/66 (82) Pulse Ox 98 O2 Delivery Room Air Capillary Refill : Less Than 3 Seconds Height, Weight, BMI Height: 5'4.00" Weight: 150lbs. 0.0oz. 68.697352ta; 23.00 BMI Method:Stated General Appearance: WD/WN, no apparent distress HEENT: PERRL/EOMI, pharyngeal erythema (Mild with drainage and cobblestoning noted) Neck: full range of motion, supple Cardiovascular: regular rate, rhythm, no murmur Respiratory: lungs clear, normal breath sounds Gastrointestinal: non tender, soft Back: normal inspection, no CVA tenderness, no vertebral tenderness Legs: right leg non-tender, right leg normal inspection; bilateral leg normal range of motion, bilateral leg no evidence of injury; left leg swelling (Foot to mid upper leg), left leg other (Left leg seems to be mildly erythematous overall) Knees: bilateral knee non-tender, bilateral knee normal inspection, bilateral knee normal range of motion Neurologic/Tendon: normal sensation, normal motor functions, normal tendon functions Neurologic/Psychiatric: alert, oriented x 3 Skin: warm/dry, other (Erythema as above) Progress/Results/Core Measures Results/Orders Lab Results Laboratory Tests Test 02/22/21 11:03 Range/Units White Blood Count 9.7 4.3-11.0 10^3/uL Red Blood Count 5.72 H 4.30-5.52 10^6/uL Hemoglobin 16.7 13.3-17.7 g/dL Hematocrit 49 40-54 % Mean Corpuscular Volume 86 80-99 fL Mean Corpuscular Hemoglobin 29 25-34 pg Mean Corpuscular Hemoglobin Concent 34 32-36 g/dL Red Cell Distribution Width 14.3 10.0-14.5 % Platelet Count 154 130-400 10^3/uL Mean Platelet Volume 10.3 9.0-12.2 fL Immature Granulocyte % (Auto) 1 % Neutrophils (%) (Auto) 62 42-75 % Lymphocytes (%) (Auto) 20 12-44 % Monocytes (%) (Auto) 8 0-12 % Eosinophils (%) (Auto) 8 0-10 % Basophils (%) (Auto) 0 0-10 % Neutrophils # (Auto) 6.0 1.8-7.8 10^3/uL Lymphocytes # (Auto) 2.0 1.0-4.0 10^3/uL Monocytes # (Auto) 0.8 0.0-1.0 10^3/uL Eosinophils # (Auto) 0.8 H 0.0-0.3 10^3/uL Basophils # (Auto) 0.0 0.0-0.1 10^3/uL Immature Granulocyte # (Auto) 0.1 0.0-0.1 10^3/uL Sodium Level 140 135-145 MMOL/L Potassium Level 4.1 3.6-5.0 MMOL/L Chloride Level 106 98-107 MMOL/L Carbon Dioxide Level 22 21-32 MMOL/L Anion Gap 12 5-14 MMOL/L Blood Urea Nitrogen 46 H 7-18 MG/DL Creatinine 1.49 H 0.60-1.30 MG/DL Estimat Glomerular Filtration Rate 46 BUN/Creatinine Ratio 31 Glucose Level 97 70-105 MG/DL Calcium Level 9.3 8.5-10.1 MG/DL Corrected Calcium 9.4 8.5-10.1 MG/DL Total Bilirubin 1.4 H 0.1-1.0 MG/DL Aspartate Amino Transf (AST/SGOT) 28 5-34 U/L Alanine Aminotransferase (ALT/SGPT) 22 0-55 U/L Alkaline Phosphatase 63 40-136 U/L Total Protein 7.0 6.4-8.2 GM/DL Albumin 3.9 3.2-4.5 GM/DL My Orders Orders - RAFITA DILL MD Venous Lower Ext Lt (02/22/21 10:15) Cbc With Automated Diff (02/22/21 10:22) Comprehensive Metabolic Panel (02/22/21 10:22) Apixaban Tablet (Eliquis Tablet) (02/22/21 11:15) Medications Given in ED Current Medications Medications Dose Ordered Sig/Lala Route Start Time Stop Time Status Last Admin Dose Admin Apixaban 10 mg ONCE ONCE PO 02/22/21 11:15 02/22/21 11:16 DC 02/22/21 11:19 10 MG Vital Signs/I&O 02/22/21 09:25 Temp 36.5 Pulse 79 Resp 16 B/P (MAP) 113/66 (82) Pulse Ox 98 O2 Delivery Room Air Blood Pressure Mean: 82 Progress Progress Note : Progress Note Molly and evaluated. Patient had labs drawn this morning for CT scan which we will review. Ultrasound left lower extremity ordered for concerns of DVT. Monitor patient. 1021: Had limited labs this morning resulting creatinine and GFR which does show some kidney disease. We will go ahead and get CBC and CMP to evaluate chemistries and blood counts fully as there is concerns about DVT versus cellulitis. Monitor patient. 1140: Patient has extensive DVT to the remedy. Eliquis 10 mg p.o. initiated. We will continue that with starter pack and then give 1 month worth of the prescription to initiate Eliquis. Patient then will follow up with his doctor for continued prescriptions. I will send a copy of the chart to Dr. Escobar and Dr. SAMUEL. I did discuss the case with Dr. Solomon with reference to the aspirin dosing daily. He takes 81 mg daily. He will hold that for 1 week while he is on the starter pack and then restart the aspirin. Discharged home with return precautions. Patient verbalized understanding instructions and agreement with plan. Diagnostic Imaging Diagonstic Imaging: Ultrasound Plain Films/CT/US/NM/MRI: leg Comments [facility], [place] NAME: [facility] REC#: [id number] PT STATUS: REG ER : 1945 PHYSICIAN: RAFITA DILL MD ADMIT DATE: 02/22/21/ER Signed Date of Exam:02/22/21 US VENOUS LOWER EXT LT INDICATION: Left leg swelling x4 days. Lower extremity pain. TECHNIQUE: Multiple real-time grayscale images were obtained over the left lower extremity in various projections, bilaterally. Additional duplex Doppler and color Doppler images were also obtained. CORRELATION STUDY: 12/03/2015 FINDINGS: Color and grayscale sonographic images demonstrate rather extensive, occlusive clot through the entirety of the left lower extremity deep venous system. There is intraluminal filling defect within the visualized portions of the common femoral, superficial femoral and popliteal veins as well as the veins within the calf consistent with thrombus formation. These vessels are noncompressible. Mild lower extremity edema. IMPRESSION: 1. Findings positive for extensive, occlusive clot throughout the entire deep venous system of the left leg. Dictated by: Dictated on workstation # [id number] Dict: 02/22/21 1129 Trans: 02/22/21 1132 DO [id number] Interpreted by: ROXANNA YOON DO Electronically signed by: ROXANNA YOON DO 02/22/21 1132 Reviewed: Reviewed by Me Departure Impression Primary Impression: Left leg DVT Qualified Codes: I82.402 - Acute embolism and thrombosis of unspecified deep veins of left lower extremity Disposition: 01 HOME, SELF-CARE Condition: Stable Departure-Patient Inst. Decision time for Depature: 11:46 Referrals: ELVA ESCOBAR DO (PCP/Family) Primary Care Physician Patient Instructions: Deep Vein Thrombosis (Blood Clots in the Legs) Add. Discharge Instructions: All discharge instructions reviewed with patient and/or family. Voiced understanding. Take medications as directed. Follow-up with Dr. Escobar and/or Dr. Samuel for recheck and further evaluation and for continuation of prescription for Eliquis. Return for worse pain, swelling, weakness, fever, breathing problems, chest pain or other concerns as needed. You need to take it easy over the next 5 to 7 days as you initiate this treatment. Do not perform activities that increase your risk for head injury as you will have much higher likelihood to have bleeding with the new medicine. There is bleeding risk with this new medicine and you should monitor for this and let your doctor know or return to the emergency department for any excessive bleeding, blood in your urine or s tool, headache, weakness, vision problems or other concerns as needed. You will take the Eliquis 10 mg twice daily for 1 week (the prescription that was sent to [facility]). You will then start the next dosing of Eliquis at 5 mg twice daily and will likely need to take that for the next 6 months. Hold your aspirin for the first week while you are on the higher dose of Eliquis and then you may restart it when you start taking the lower dose Eliquis. Scripts Apixaban (Eliquis) 5 Mg Tablet 5 MG PO BID for 30 Days, #60 TAB Prov: RAFITA DILL MD 02/22/21 Apixaban (Eliquis) 5 Mg Tablet 10 MG PO BID for 7 Days, #28 TAB Prov: RAFITA DILL MD 02/22/21 Copy Copies To 1: YAZ SAMUEL MD [facility] CCDS Copies To 2: ELVA ESCOBAR TIMOTHY D MD February 22, 2021 10:22
[2021-02-22 11:12] LABS: BASOPHILS % (AUTO) 0 % (0-10); EOSINOPHILS # (AUTO) 0.8 10^3/uL (0.0-0.3); EOSINOPHILS % (AUTO) 8 % (0-10); HEMATOCRIT 49 % (40-54); HEMOGLOBIN 16.7 g/dL (13.3-17.7); LYMPHOCYTES % (AUTO) 20 % (12-44); MEAN CORPUSCULAR HEMOGLOBIN 29 pg (25-34); MEAN CORPUSCULAR HGB CONC 34 g/dL (32-36); MEAN CORPUSCULAR VOLUME 86 fL (80-99); MEAN PLATELET VOLUME 10.3 fL (9.0-12.2); MONOCYTES # (AUTO) 0.8 10^3/uL (0.0-1.0); MONOCYTES % (AUTO) 8 % (0-12); NEUTROPHILS % (AUTO) 62 % (42-75); PLATELET COUNT 154 10^3/uL (130-400); WHITE BLOOD COUNT 9.7 10^3/uL (4.3-11.0)
[2021-02-22] MEDS ORDERED: APIXABAN 5 MG (ELIQUIS) TABLET PO ONE (11:15)
[2021-02-22 11:23] LABS: ALBUMIN 3.9 GM/DL (3.2-4.5); POTASSIUM 4.1 MMOL/L (3.6-5.0)
[2021-02-22 11:25] LABS: CALCIUM 9.3 MG/DL (8.5-10.1)
[2021-02-22 11:28] LABS: BILIRUBIN,TOTAL 1.4 MG/DL (0.1-1.0)
[2021-02-22 11:29] LABS: CREATININE SERUM 1.49 MG/DL (0.60-1.30)
--- NOTE | 2021-02-22 11:33 | Diagnostic Imaging Report ---
INDICATION: Left leg swelling x4 days. Lower extremity pain. TECHNIQUE: Multiple real-time grayscale images were obtained over the left lower extremity in various projections, bilaterally. Additional duplex Doppler and color Doppler images were also obtained. CORRELATION STUDY: 12/03/2015 FINDINGS: Color and grayscale sonographic images demonstrate rather extensive, occlusive clot through the entirety of the left lower extremity deep venous system. There is intraluminal filling defect within the visualized portions of the common femoral, superficial femoral and popliteal veins as well as the veins within the calf consistent with thrombus formation. These vessels are noncompressible. Mild lower extremity edema. IMPRESSION: 1. Findings positive for extensive, occlusive clot throughout the entire deep venous system of the left leg. Dictated by: Dictated on workstation # [id number]
[2021-02-22] MEDS ORDERED: APIX5TAB PO (11:49)
[2021-02-22 12:00] VITALS: BP 115/62
== END 2021-02-22 12:00 | disposition home or self-care (01) ==
LOC: EDUNIT# 08:49 → ER 08:51
DX: I82.402 Acute embolism and thrombosis of unspecified deep veins of left lower extremity (principal); I10 Essential (primary) hypertension; M10.9 Gout, unspecified; E11.40 Type 2 diabetes mellitus with diabetic neuropathy, unspecified; I25.10 Atherosclerotic heart disease of native coronary artery without angina pectoris; E78.00 Pure hypercholesterolemia, unspecified; K21.9 Gastro-esophageal reflux disease without esophagitis; Z95.1 Presence of aortocoronary bypass graft; Z95.0 Presence of cardiac pacemaker; Z87.891 Personal history of nicotine dependence; Z77.22 Contact with and (suspected) exposure to environmental tobacco smoke (acute) (chronic); Z88.8 Allergy status to other drugs, medicaments and biological substances; Z79.82 Long term (current) use of aspirin; Z79.4 Long term (current) use of insulin; Z79.899 Other long term (current) drug therapy
CPT/HCPCS: 36415; 80053; 85025

== ENCOUNTER → 2021-02-22 | Outpatient (CLI) | payer MEDICARE ==
[~2021-02-22] MED LIST changes: +APIX5TAB PO
[2021-02-22 07:43] LABS: CREATININE SERUM 1.73 MG/DL (0.60-1.30)
--- NOTE | 2021-02-22 08:33 | Diagnostic Imaging Report ---
INDICATION: MICROHEMATURIA--KUB PRE CT SCAN. TECHNIQUE: Single supine view of the abdomen 8:05 AM CORRELATION STUDY: None FINDINGS: Mild stool throughout the colon. No evidence for large fecal impaction. No findings to suggest high degree bowel obstruction. Multiple calcifications in the horizontal/linear distribution of the upper abdomen favors probable changes of chronic calcific pancreatitis, definitive calcification of renal cell was not present. There are few small calcifications bilateral hemipelvis which could potentially be in the course of the distal ureter. Rightward curvature of the lumbar spine with moderately advanced degenerative changes. IMPRESSION: 1. Multiple calcifications upper abdomen likely reflective of chronic calcific pancreatitis. 2. Question faint calcifications bilateral hemipelvis could be reflective of calcifications in the course of the distal ureter. The patient appears to be scheduled for CT imaging of the abdomen and pelvis, correlation with this study recommended. Dictated by: Dictated on workstation # [id number]
--- NOTE | 2021-02-22 08:58 | Diagnostic Imaging Report ---
PROCEDURE: CT abdomen and pelvis without contrast. TECHNIQUE: Multiple contiguous axial images were obtained through the abdomen and pelvis without the use of intravenous contrast. Auto Exposure Controls were utilized during the CT exam to meet ALARA standards for radiation dose reduction. INDICATION: Hematuria. Correlation is made with prior CT from 09/11/2020. The lung bases are clear. Liver and gallbladder are unremarkable. There is no biliary duct dilatation. Calcifications throughout the pancreas again noted consistent with calcific pancreatitis. Spleen is unremarkable. No adrenal mass is detected. Small cortical cyst left kidney is again noted. No renal calculi are identified. No ureteral calculi or hydronephrosis is detected. No definite bladder calculi are detected. Prostate remains markedly enlarged. Aorta is nonaneurysmal. The small and large bowel loops are normal caliber. There is no obstruction. No free fluid or fluid collection is seen. Occasional colonic diverticulosis is noted without evidence of diverticulitis. IMPRESSION: 1. No evidence of urinary tract calculi or obstruction. 2. Prostatomegaly. 3. Uncomplicated diverticulosis. Dictated by: Dictated on workstation # [id number]
== END ==
LOC: RAD 07:13
PROVIDERS: ATTEND Urology
DX: K57.30 Diverticulosis of large intestine without perforation or abscess without bleeding (principal); N40.1 Benign prostatic hyperplasia with lower urinary tract symptoms
CPT/HCPCS: 36415; 74018; 74176; 82565; 84520

== ENCOUNTER 2021-05-17 08:30 | Day surgery (SDC) | payer MEDICARE ==
[2021-05-17] VITALS (9 sets, daily range): BP systolic 117–135; BP diastolic 68–83
[~2021-05-17] VITALS: Ht 162.6 cm; Wt 66.7 kg
[2021-05-17 07:45] LABS: HEMATOCRIT 53 % (40-54); HEMOGLOBIN 17.2 g/dL (13.3-17.7); MEAN CORPUSCULAR HEMOGLOBIN 29 pg (25-34); MEAN CORPUSCULAR HGB CONC 33 g/dL (32-36); MEAN CORPUSCULAR VOLUME 89 fL (80-99); MEAN PLATELET VOLUME 10.5 fL (9.0-12.2); PLATELET COUNT 185 10^3/uL (130-400); WHITE BLOOD COUNT 7.3 10^3/uL (4.3-11.0)
[2021-05-17 08:03] LABS: ALBUMIN 3.7 GM/DL (3.2-4.5); POTASSIUM 4.2 MMOL/L (3.6-5.0)
[2021-05-17 08:04] LABS: CALCIUM 9.1 MG/DL (8.5-10.1)
[2021-05-17 08:06] LABS: TOTAL PROTEIN 6.8 GM/DL (6.4-8.2)
[2021-05-17 08:07] LABS: BILIRUBIN,TOTAL 1.1 MG/DL (0.1-1.0)
[2021-05-17 08:09] LABS: CREATININE SERUM 1.33 MG/DL (0.60-1.30)
[2021-05-17 08:18] LABS: PROTHROMBIN TIME PATIENT 13.3 SEC (12.2-14.7)
[~2021-05-17 08:30] MED LIST changes: +APIX5TAB PO; +HEParin (CATH LAB) 1,000 ML IV ONE; +LIDOCAINE 1% INJ 20 ML 20 ML VIAL ONE; +NS IV 1000 ML 1,000 ML IV ONE; +NS IV 1000 ML 1,000 ML ONE; -OMEP40CA27 PO; +OMEP40CA6 PO; +ceFAZolin INJECTION 1,000 MG ONE; +ceFAZolin INJECTION 1,000 MG VIAL IV ONE
[2021-05-17] MEDS ORDERED: APIX5TAB PO (08:53)
[2021-05-17] MEDS ORDERED: PANT40TA2 PO (08:53)
--- NOTE | 2021-05-17 09:25 | Cardiac Procedure Note-CS/ASA ---
Pre-Procedure Note Pre-Op Procedure Note H&P Reviewed The H&P was reviewed, patient examined and no changes noted. Date H&P Reviewed: May 17, 2021 Time H&P Reviewed: 08:30 Conscious Sedation Pre-Proced Time 08:30 ASA Score 3 For ASA 3 and 4: Consider anesthesia and medical clearance. Also, for patients with a history of failed moderate sedation consider anesthesia. Airway Lungs Heart ASA score ASA 1: a normal healthy patient ASA 2: a patient with a mild systemic disease (mid diabetes, controlled hypertension, obesity ASA 3: a patient with a severe systemic disease that limits activity (angina, COPD, prior Myocardial infarction) ASA 4: a patient with an incapacitating disease that is a constant threat to life (CHF, renal failure) ASA 5: a moribund patient not expected to survive 24 hrs. (ruptured aneurysm) ASA 6: a declared brain- patient whose organs are being harvested. For emergent operations, add the letter E after the classification Mallampati Classification Grade 2 Sedation Plan Analgesia, Amnesia, Plan communicated to team members, Discussed options with patient/fam, Discussed risks with patient/fam The patient is an appropriate candidate to undergo the planned procedure, sedation, and anesthesia. The patient immediately re-assessed prior to indication. YAZ SAMEUL MD FACP FAC CCDS May 17, 2021 09:25
[2021-05-17] MEDS ORDERED: CEFU500T63 PO (09:29)
--- NOTE | 2021-05-17 09:30 | Discharge Inst-Cardiology ---
Discharge Inst-Cardiac Discharge Medications New Medications: Cefuroxime Axetil (Cefuroxime) 500 Mg Tablet 500 MG PO BID, #10 TAB Continued Medications: Apixaban (Eliquis) 5 Mg Tablet 5 MG PO BID, TAB Aspirin (Aspirin EC) 81 Mg Tablet.dr 81 MG PO DAILY, TAB Cetirizine HCl (Cetirizine HCl) 10 Mg Tablet 10 MG PO HS, TAB Empagliflozin (Jardiance) 25 Mg Tablet 25 MG PO DAILY, TAB Enalapril Maleate (Enalapril Maleate) 5 Mg Tablet 5 MG PO HS, TAB Insulin Glargine,Hum.rec.anlog (Lantus Solostar) 100 Unit/1 Ml Insuln.pen 18 UNIT SQ BID, EA Pantoprazole Sodium (Protonix) 40 Mg Tablet.dr 40 MG PO DAILY, TAB Probenecid (Probenecid) 500 Mg Tablet 500 MG PO DAILY, TAB Rosuvastatin Calcium (Rosuvastatin Calcium) 5 Mg Tablet 2.5 MG PO DAILY, TAB Semaglutide (Ozempic) 0.25 Mg/0.2 Ml Pen.injctr 0.05 MG SQ WEEK, VIAL Tamsulosin HCl (Flomax) 0.4 Mg Cap 0.4 MG PO DAILY, CAP YAZ SAMUEL MD [facility] CCDS May 17, 2021 09:30
--- NOTE | 2021-05-17 09:32 | Discharge Inst-Post CATH ---
Discharge Inst-CATH/EP Post Cardiac Cath/EP D/C Inst Follow Up/Plan F/u at Dr Amaya[facility] for wound check on 05/20/21 Hold Eliquis on 05/17/21, resume on 05/18/21 ACTIVITY * Go Home directly and rest. * Limit activity of the leg (or wrist if it was used) for 7 days including aerobics, swimming, jogging, bicycling, etc. * Restrict stair-climbing for 7 days if possible, if not, climb up with your non-cath leg, then bring together on the same step. * Avoid lifting, pushing, pulling or excessive movement of the affected extremity for 7 days. * Customary sexual activity may be resumed after 2 days-use caution not to use a position that strains or causes pain to the affected extremity. * No driving for 24 hours. * NO SMOKING. * Avoid straining for bowel movements for 7 days. * Gentle walking on level ground is allowed. * Returning to work will depend on the type of procedure and the results. Your doctor will discuss this with you. CALL YOUR DOCTOR FOR ANY OF THE FOLLOWING: *If bleeding from the puncture site occurs- Apply gentle pressure to site with clean cloth and call your doctor or EMS. * If a knot or lump forms under the skin, increases in size, or causes pain. * If bruising appears to be worsening or moving further down your leg instead of disappearing. * Temperature above 101 F. CARE OF YOUR GROIN INCISION; * Bruising or purple discoloration of the skin near the puncture site is common. * You may shower only, no bathtub bathing for 5 days. Be careful to avoid slipping as your leg may feel stiff. * If a closure device was used on your femoral artery, please see the attached guide regarding care of the device and your leg. * Leave dressing on FOR 24 hours. CARE OF YOUR WRIST INCISION; * Bruising or purple discoloration of the skin near the puncture site is common. * You may shower. * DO NOT submerge wrist. * Leave dressing on FOR 24 hours. YAZ AMAYA MD FACP [facility] May 17, 2021 09:32
--- NOTE | 2021-05-17 17:00 | Diagnostic Imaging Report ---
INDICATION: Postoperative film for coronary disease. Comparison with 08/26/2016. FINDINGS: Cardiomegaly present. No pulmonary edema. The lungs are well-aerated and clear. No pneumothorax or pleural effusion. Median sternotomy changes with ICD pacer are again present. IMPRESSION: Postoperative residue with no acute changes demonstrated. Dictated by: Dictated on workstation # [id number]
--- NOTE | 2021-05-17 19:12 | OPERATIVE REPORT ---
DATE OF SERVICE: 05/17/2021 PREOPERATIVE DIAGNOSIS: Single chamber ICD at end of life. POSTOPERATIVE DIAGNOSIS: Single chamber ICD at end of life. PROCEDURE: Pulse generator change. INDICATIONS: The patient is a 76-year-old gentleman who has an implantable cardioverter defibrillator, which has reached end of life. Pulse generator was carried out today after having obtained an informed consent. DESCRIPTION OF PROCEDURE: [facility] The left prepectoral area was prepared and draped in the usual sterile fashion. Lidocaine 1% was used for local anesthesia. Sharp and blunt dissection was used to open the device pocket. The device was removed and detached from the lead. A new device was attached. Good hemostasis was assured. The new device and the leads were placed back into the pocket. The pocket was closed in 2 layers using 3.0 Vicryl. He tolerated the procedure well. The device removed is a [employer], serial #[id number]. The new device is Branch, serial #[id number]. Job ID: [id number] DocumentID: [id number] Dictated Date: 05/17/2021 09:20:56 Managing Director Date: 05/17/2021 14:22:59 Dictated By: YAZ SAMUEL MD, MA, FACP, FACC,
== END 2021-05-17 12:50 | disposition home or self-care (01) ==
LOC: SDC 10:11 → CATH 12:50
PROVIDERS: ATTEND Internal Medicine Cardiovascular Disease
DX: Z45.02 Encounter for adjustment and management of automatic implantable cardiac defibrillator (principal); I25.10 Atherosclerotic heart disease of native coronary artery without angina pectoris; N18.30 Chronic kidney disease, stage 3 unspecified; G47.33 Obstructive sleep apnea (adult) (pediatric); I42.8 Other cardiomyopathies; I25.5 Ischemic cardiomyopathy; I50.22 Chronic systolic (congestive) heart failure; K21.9 Gastro-esophageal reflux disease without esophagitis; E11.9 Type 2 diabetes mellitus without complications; M10.9 Gout, unspecified; I34.0 Nonrheumatic mitral (valve) insufficiency; I65.23 Occlusion and stenosis of bilateral carotid arteries; Z79.82 Long term (current) use of aspirin; Z79.899 Other long term (current) drug therapy; Z79.01 Long term (current) use of anticoagulants; Z98.890 Other specified postprocedural states; Z95.1 Presence of aortocoronary bypass graft; Z86.69 Personal history of other diseases of the nervous system and sense organs
CPT/HCPCS: 33262; 71045; 80053; 80061; 85027; 85610; 85730; 87081; C1722; 36415

== ENCOUNTER → 2021-07-02 | Outpatient (CLI) | payer MEDICARE ==
[~2021-07-02] MED LIST changes: +CEFU500T63 PO; -HEParin (CATH LAB) 1,000 ML IV ONE; -LIDOCAINE 1% INJ 20 ML 20 ML VIAL ONE; -NS IV 1000 ML 1,000 ML IV ONE; -NS IV 1000 ML 1,000 ML ONE; -ceFAZolin INJECTION 1,000 MG ONE; -ceFAZolin INJECTION 1,000 MG VIAL IV ONE
== END ==
LOC: CARD 08:30
PROVIDERS: ATTEND Internal Medicine Cardiovascular Disease
DX: I51.7 Cardiomegaly (principal); I25.5 Ischemic cardiomyopathy
CPT/HCPCS: 93306

== ENCOUNTER → 2022-03-04 | Outpatient (RCR) | payer MEDICARE ==
[~2022-03-04] MED LIST changes: +OMEP20TA56 PO; -OMEP20TA7 PO
== END | disposition home or self-care (01) ==
PROVIDERS: ATTEND Orthopaedic Surgery
DX: M70.62 Trochanteric bursitis, left hip (principal); M54.50 Low back pain, unspecified; M54.2 Cervicalgia; E11.9 Type 2 diabetes mellitus without complications

== ENCOUNTER 2022-03-07 13:18 | Outpatient (RCR) | payer MEDICARE | END 2022-04-03 | disposition home or self-care (01) | PROVIDERS: ATTEND Orthopaedic Surgery | DX: M70.62 Trochanteric bursitis, left hip (principal); M54.50 Low back pain, unspecified; M54.2 Cervicalgia; E11.9 Type 2 diabetes mellitus without complications ==

== ENCOUNTER 2022-09-30 09:06 | Emergency (ER) | payer MEDICARE ==
[~2022-09-30] VITALS: Ht 162.5 cm; Wt 61.4 kg
[~2022-09-30 09:06] MED LIST changes: +ALBU8.5H6 IH; -RT-ALBUINH IH
--- NOTE | 2022-09-30 09:32 | ED Lower Extremity ---
General Chief Complaint: Lower Extremity Stated Complaint: LOWER LT LEG PAIN Source: patient Exam Limitations: no limitations History of Present Illness Date Seen by Provider: Sep 30, 2022 Time Seen by Provider: 09:30 Initial Comments 77-year-old male presents the emergency department today for left leg pain. Its below the knee. He does have a history of a DVT after he received the [employer] COVID-vaccine. He was previously on Eliquis but stopped it 2 weeks ago. He had a car ride to [facility], 3 to 4 hours there and back for the holiday. When he got home he had pain in his left leg. He denies any chest pain or shortness of breath. No swelling at this time. Pain is dull throbbing with no aggravating or alleviating factors. No claudication symptoms no rash redness or swelling. No fevers or chills. Allergies and Home Medications Allergies Coded Allergies: allopurinol (Verified Allergy, Severe, HALLUCINATIONS, 10/04/20) indomethacin (Verified Allergy, Severe, HALLUCINATIONS, 10/04/20) Patient Home Medication List Home Medication List Reviewed: Yes Apixaban (Eliquis) 5 Mg Tablet, 5 MG PO BID, (Reported) Entered as Reported by: SONI PARISI on 05/17/21 0853 Aspirin (Aspirin EC) 81 Mg Tablet.dr, 81 MG PO DAILY, (Reported) Entered as Reported by: JACLYN LEBRON on 07/26/20 1501 Cefuroxime Axetil (Cefuroxime) 500 Mg Tablet, 500 MG PO BID Prescribed by: YAZ SAMUEL on 05/17/21 0929 Cetirizine HCl (Cetirizine HCl) 10 Mg Tablet, 10 MG PO HS, (Reported) Entered as Reported by: GAYB NETTLES on 08/11/16 1540 Empagliflozin (Jardiance) 25 Mg Tablet, 25 MG PO DAILY, (Reported) Entered as Reported by: JACLYN LEBRON on 07/26/20 1501 Enalapril Maleate (Enalapril Maleate) 5 Mg Tablet, 5 MG PO HS, (Reported) Entered as Reported by: GABY NETTLES on 08/11/16 1539 Insulin Glargine,Hum.rec.anlog (Lantus Solostar) 100 Unit/1 Ml Insuln.pen, 18 UNIT SQ BID, (Reported) Entered as Reported by: JACLYN LEBRON on 02/20/16 0948 Pantoprazole Sodium (Protonix) 40 Mg Tablet.dr, 40 MG PO DAILY, (Reported) Entered as Reported by: SONI PARISI on 05/17/21 0853 Probenecid (Probenecid) 500 Mg Tablet, 500 MG PO DAILY, (Reported) Entered as Reported by: JACLYN LEBRON on 07/26/20 1501 Rosuvastatin Calcium (Rosuvastatin Calcium) 5 Mg Tablet, 2.5 MG PO DAILY, (Reported) Entered as Reported by: JACLYN LEBRON on 07/26/20 1501 Semaglutide (Ozempic) 0.25 Mg/0.2 Ml Pen.injctr, 0.05 MG SQ WEEK, (Reported) Entered as Reported by: JACLYN LEBRON on 07/26/20 1501 Tamsulosin HCl (Flomax) 0.4 Mg Cap, 0.4 MG PO DAILY, (Reported) Entered as Reported by: JACLYN LEBRON on 07/26/20 1501 Review of Systems Constitutional: no symptoms reported EENTM: no symptoms reported Respiratory: no symptoms reported Cardiovascular: no symptoms reported Gastrointestinal: no symptoms reported Genitourinary: no symptoms reported Musculoskeletal: muscle pain Skin: no symptoms reported Psychiatric/Neurological: No Symptoms Reported Past Ghewykf-Vescxl-Idrdvm Hx Patient Social History Tobacco Use?: No Use of E-Cig and/or Vaping dev: No Substance use?: No Alcohol Use?: No Seasonal Allergies Seasonal Allergies: Yes Past Medical History Surgeries: Yes (CABG W/VALVE REPAIRED, BILAT TKR, KNEE SCOPE, TKR REPAIR,hernia, foot,TURP) CABG, Joint Replacement, Pacemaker Respiratory: Yes Sleep Apnea Currently Using CPAP: No Currently Using BIPAP: No Cardiac: Yes (MITRAL VALVE REPAIR/ SINGLE BYPASS, [employer] pacemaker) Cardiomyopathy, Coronary Artery Disease, High Cholesterol, Hypertension Neurological: Yes Neuropathy Reproductive Disorders: No Sexually Transmitted Disease: No Genitourinary: No Gastrointestinal: Yes (R ing hernia) Gastroesophageal Reflux Musculoskeletal: Yes (DJD) Arthritis, Gout Endocrine: Yes Diabetes, Insulin dep HEENT: Yes (GLASSES, DENTURES) Loss of Vision: Denies Hearing Impairment: Hard of Hearing Cancer: Yes Skin What Type of Treatment Did You: Surgical Intervention Psychosocial: No Integumentary: No Blood Disorders: No Adverse Reaction/Blood Tranf: No (N/A) Family Medical History Reviewed Nursing Family Hx No Pertinent Family Hx Physical Exam Vital Signs Vital Signs - First Documented 09/30/22 09:10 Temp 36.0 Pulse 83 Resp 16 B/P (MAP) 121/74 (90) Pulse Ox 96 Capillary Refill : Height, Weight, BMI Height: 5'4.00" Weight: 150lbs. 0.0oz. [id number]; 25.22 BMI Method:Stated General Appearance: WD/WN, no apparent distress HEENT: normal ENT inspection, pharynx normal Neck: non-tender, supple Cardiovascular: regular rate, rhythm, no murmur Respiratory: chest non-tender, lungs clear, normal breath sounds, no respiratory distress, no accessory muscle use Gastrointestinal: normal bowel sounds, non tender, soft, no organomegaly, no pulsatile mass Back: normal inspection, no CVA tenderness Hips: bilateral hip non-tender, bilateral hip normal inspection, bilateral hip normal range of motion Legs: right leg non-tender, right leg normal inspection, right leg normal range of motion; left leg pain (Tenderness palpation left leg in the calf area. Neurovascular and sensory intact without any swelling.) Knees: bilateral knee non-tender, bilateral knee normal inspection, bilateral knee normal range of motion Ankles: bilateral ankle non-tender, bilateral ankle normal inspection, bilateral ankle normal range of motion Feet: bilateral foot non-tender, bilateral foot normal inspection, bilateral foot normal range of motion Neurologic/Psychiatric: alert, oriented x 3 Skin: other (Onychomycosis.) Progress/Results/Core Measures Results/Orders My Orders Orders - LASHONDA FERGUSON DO Us Venous Lower Ext Lt (09/30/22 09:28) Vital Signs/I&O 09/30/22 09:10 Temp 36.0 Pulse 83 Resp 16 B/P (MAP) 121/74 (90) Pulse Ox 96 Departure Communication (Admissions) Patient is hemodynamically stable. 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 No evidence for PE at this time. He does have a full prescription bottle of Eliquis at home, states he just refilled it when he got the call today. Taking it 2 weeks ago. He will resume this upon arriving home. Given strict return precautions for chest pain, shortness of breath. Otherwise he will follow-up with his primary doctor with current findings. He is discharged in stable condition. Impression Primary Impression: Left leg DVT Qualified Codes: I82.452 - Acute embolism and thrombosis of left peroneal vein Disposition: HOME, SELF-CARE Condition: Stable Departure-Patient Inst. Referrals: ELVA ESCOBAR DO (PCP/Family) Primary Care Physician Patient Instructions: Deep Vein Thrombosis (Blood Clots in the Legs) (DC) Add. Discharge Instructions: Resume your Eliquis at home. Notify you primary doctor these findings. Will carolyn lunsford need to be on Eliquis lifelong. Return to the emergency department immediately if you develop any chest pain or shortness of breath. Follow-up with your primary doctor for any nonemergent needs All discharge instructions reviewed with patient and/or family. Voiced understanding. LASHONDA FERGUSON DO Sep 30, 2022 09:32
--- NOTE | 2022-09-30 10:39 | Diagnostic Imaging Report ---
PROCEDURE: US left lower extremity venous. TECHNIQUE: Multiple real-time grayscale images were obtained over the left lower extremity in various projections. Additional duplex Doppler and color Doppler images were also obtained. INDICATION: Left leg pain There is thrombotic occlusion of the left superficial femoral popliteal vein segments. There is collateral venous flow seen. The common femoral vein and calf veins are clear. 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 Dictated by: Dictated on workstation # [id number]
[2022-09-30 11:00] VITALS: BP 134/77
== END 2022-09-30 11:00 | disposition home or self-care (01) ==
LOC: EDUNIT# 09:06 → ER 09:09
DX: I82.512 Chronic embolism and thrombosis of left femoral vein (principal); I82.532 Chronic embolism and thrombosis of left popliteal vein; E11.9 Type 2 diabetes mellitus without complications; Z79.1 Long term (current) use of non-steroidal anti-inflammatories (NSAID)

== ENCOUNTER → 2023-04-16 | Outpatient (CLI) | payer MEDICARE ==
[~2023-04-16] MED LIST changes: +ENAL-66 PO; -ENLP5T PO; +POTA-330 PO; -POTA-51 PO
--- NOTE | 2023-04-16 16:10 | Diagnostic Imaging Report ---
Indication: Right knee pain. Time of Exam: 8:20 AM Two views right knee demonstrate postoperative changes of total right knee arthroplasty. Prosthetic elements are in good position without fracture or loosening. No acute bony abnormality is seen. IMPRESSION: Postoperative changes to the right knee. No acute feature is detected. Dictated by: Dictated on workstation # [id number]
== END ==
LOC: ORTHO 08:09
PROVIDERS: ATTEND Orthopaedic Surgery
DX: M25.561 Pain in right knee (principal); Z98.890 Other specified postprocedural states
CPT/HCPCS: 73560; G0463; 99203